=== PATIENT | male | born 1990 | race Caucasian/White ===

== ENCOUNTER 2025-04-18 21:43 | Inpatient (IN) | payer MEDICAID, OTHER ==
[~2025-04-18] VITALS: Ht 177.8 cm; Wt 81.0 kg
[~2025-04-18 21:43] MED LIST: ATOM10CA4 PO; CLON0.1T2 PO; DIVA-153 PO; GABA-1201 PO; MELA5TAB40 PO; QUET100T34 PO; QUET200T30 PO
[2025-04-18 22:53] LABS: COVID AG,FIA SOURCE NASAL SWAB
[2025-04-18 23:10] LABS: SARS-COV2 (COVID) ANTIGEN,FIA Negative (Negative)
[2025-04-18 23:18] LABS: PLATELET COUNT (AUTO) 192 K/uL (150-450); RED BLOOD CELL COUNT(AUTO) 4.96 MIL/uL (4.50-5.90); RED CELL DISTRIBUTION WIDTH 14.9 % (11.5-14.5); WHITE BLOOD COUNT (AUTO) 9.6 K/uL (4.5-11.0)
[2025-04-18 23:44] LABS: CALCIUM, TOTAL 8.9 mg/dL (8.8-10.5); CREATININE 0.81 mg/dL (0.60-1.30); GLOMERULAR FILTR. RATE CALC > 60 mL/min (>60); GLUCOSE,RANDOM 102 mg/dL (70-110); SODIUM SERUM 139 mmol/L (136-145); UREA NITROGEN, BLOOD 13 mg/dL (7-18)
[2025-04-19] MEDS: ZOLPIDEM TARTRATE 10 MG TABLET PO PRN (01:48)
[2025-04-19] MEDS: LORazepam 2 MG/ML VIAL IM ONE (03:58)
[2025-04-19 06:58] LABS: PLATELET COUNT (AUTO) 197 K/uL (150-450); RED BLOOD CELL COUNT(AUTO) 4.97 MIL/uL (4.50-5.90); RED CELL DISTRIBUTION WIDTH 14.8 % (11.5-14.5); WHITE BLOOD COUNT (AUTO) 9.1 K/uL (4.5-11.0)
[2025-04-19 07:13] LABS: ASPARTATE AMINOTRANSFERASE 22 U/L (15-37); CALCIUM, TOTAL 8.7 mg/dL (8.8-10.5); CHOL/HDL RATIO 6.6 (4.2-7.3); CREATININE 0.64 mg/dL (0.60-1.30); GLOMERULAR FILTR. RATE CALC > 60 mL/min (>60); GLUCOSE,RANDOM 98 mg/dL (70-110); SODIUM SERUM 138 mmol/L (136-145); TOTAL PROTEIN, SERUM 7.0 g/dL (6.4-8.2); UREA NITROGEN, BLOOD 13 mg/dL (7-18)
[2025-04-19] MEDS: DIVALPROEX SODIUM 500 MG ER TABLET PO SCH (08:18)
[2025-04-19 08:19] VITALS: O2SAT 99
[2025-04-19] MEDS: GABAPENTIN 400 MG CAPSULE PO SCH (08:19)
[2025-04-19] MEDS: ATOMOXETINE HCL 10 MG CAPSULE PO SCH (12:54)
[2025-04-19 13:07] VITALS: BP 117/75; PULSE 78; RESP 18; TEMP 98.4; O2SAT 98
[2025-04-19] MEDS: BACITRACIN 28 GM OINTMENT TP SCH (17:01)
[2025-04-19] MEDS ORDERED: DOCUSATE SODIUM 100 MG CAPSULE PO PRN (18:15)
[2025-04-19] MEDS ORDERED: ACETAMINOPHEN 325 MG TABLET PO PRN (18:15)
[2025-04-19] MEDS ORDERED: MAGNESIUM HYDROXIDE SUSPENSION 30 ML UDCUP PO PRN (18:15)
[2025-04-19] MEDS ORDERED: BENZOCAINE/MENTHOL [CEPACOL] LOZENGE PO PRN (18:15)
[2025-04-19] MEDS ORDERED: ALBUTEROL SULFATE HFA 90 MCG/PUFF 8 GM INHALER IH PRN (18:15)
[2025-04-19] MEDS ORDERED: MAG HYDROX/ALUMINUM HYD/SIMETH ES 30 ML SUSPENSION UDCUP PO PRN (18:15)
[2025-04-19] MEDS ORDERED: IBUPROFEN 600 MG TABLET PO PRN (18:15)
[2025-04-19] MEDS ORDERED: OMEPRAZOLE 20 MG CAPSULE PO PRN (18:15)
[2025-04-19] MEDS ORDERED: LOPERAMIDE HCL 2 MG CAPSULE PO PRN (18:15)
[2025-04-19] MEDS ORDERED: ONDANSETRON 4 MG TABLET PO PRN (18:15)
[2025-04-19] MEDS ORDERED: PETROLATUM,WHITE 28 GM JELLY TP PRN (18:15)
[2025-04-19 20:13] VITALS: BP 121/81; PULSE 75; RESP 18; TEMP 98; O2SAT 97
[2025-04-19] MEDS: MELATONIN 5 MG TABLET PO SCH (20:55)
[2025-04-20 08:06] VITALS: PULSE 70; RESP 17; TEMP 97.3; O2SAT 97
[2025-04-20] MEDS: ATOMOXETINE HCL 25 MG CAPSULE PO SCH (09:29)
[2025-04-20] MEDS ORDERED: LORazepam 2 MG/ML VIAL ONE (16:32)
[2025-04-20] MEDS: LORazepam 2 MG/ML VIAL IM ONE (17:30)
[2025-04-20 20:26] VITALS: BP 134/82; PULSE 100; RESP 16; TEMP 98.4; O2SAT 97
[2025-04-20] MEDS: DIVALPROEX SODIUM 500 MG DR TABLET PO SCH (20:54)
[2025-04-21 06:14] VITALS: BP 137/77; PULSE 78; RESP 20; TEMP 97.2
[2025-04-21] MEDS: DIVALPROEX SODIUM 500 MG ER TABLET PO SCH (06:18)
[2025-04-21] MEDS: OLANZapine 10 MG RAPDIS TABLET PO SCH (06:19)
[2025-04-21] MEDS: ETHYL ALCOHOL 62% ANTISEPTIC NASAL SANITIZER 0.6 ML AMPUL NASAL SCH (09:47)
[2025-04-21 10:06] VITALS: BP 117/76; PULSE 91; RESP 16; TEMP 98.9; O2SAT 98
[2025-04-21] MEDS: CHLORHEXIDINE GLUCONATE 2% TOWELETTE [2'S/6'S] TP SCH (21:06)
[2025-04-22 03:46] VITALS: RESP 16
[2025-04-22 09:41] VITALS: BP 128/91; PULSE 98; RESP 17; TEMP 97.3; O2SAT 98
[2025-04-22] MEDS: LORazepam 2 MG/ML VIAL IM ONE (13:00)
[2025-04-22] MEDS: GABAPENTIN 100 MG CAPSULE PO SCH (13:12)
[2025-04-22] MEDS: OLANZapine 5 MG RAPDIS TABLET PO SCH (17:34)
[2025-04-22 20:24] VITALS: BP 115/83; PULSE 96; RESP 17; TEMP 100; O2SAT 98
[2025-04-23 09:48] VITALS: BP 126/81; PULSE 93; RESP 17; TEMP 98.3; O2SAT 95
[2025-04-23 20:55] VITALS: BP 147/97; PULSE 98; RESP 18; TEMP 98.3; O2SAT 99
[2025-04-24 09:02] VITALS: BP 130/92; PULSE 93; RESP 17; TEMP 97.7; O2SAT 98
[2025-04-24 20:06] VITALS: BP 124/77; PULSE 84; RESP 16; TEMP 97.5; O2SAT 97
[2025-04-25 08:08] VITALS: RESP 16
[2025-04-25] MEDS: GABAPENTIN 100 MG CAPSULE PO SCH (08:08)
[2025-04-25 08:18] VITALS: BP 117/81; PULSE 80; RESP 16; TEMP 98.1; O2SAT 98
[2025-04-25 09:08] VITALS: RESP 16
[2025-04-25 12:26] VITALS: BP 114/80; RESP 17
[2025-04-25 20:21] VITALS: RESP 18
[2025-04-26 08:05] VITALS: BP 113/80; PULSE 85; RESP 18; TEMP 97.8; O2SAT 98
[2025-04-26 20:12] VITALS: BP 132/88; PULSE 97; RESP 19; TEMP 98.9; O2SAT 97
[2025-04-26] MEDS: INFLUENZA VIRUS VACCINE TVS (6MO+) 2025-26/PF 45 MCG/0.5 ML SYRINGE IM. ONE (23:00)
[2025-04-27 08:22] VITALS: BP 108/73; PULSE 90; RESP 18; TEMP 98.3; O2SAT 100
[2025-04-27 20:17] VITALS: BP 115/80; PULSE 89; RESP 17; TEMP 98; O2SAT 98
[2025-04-28 08:18] VITALS: RESP 17
[2025-04-28] MEDS: BACITRACIN 28 GM OINTMENT TP PRN (09:35)
[2025-04-28 20:28] VITALS: BP 126/84; PULSE 95; RESP 19; TEMP 98.9; O2SAT 95
[2025-04-29 08:09] VITALS: BP 116/77; PULSE 92; RESP 17; TEMP 97.7; O2SAT 98
[2025-04-29 20:03] VITALS: BP 139/82; PULSE 79; RESP 18; TEMP 97.8; O2SAT 98
[2025-04-30 21:03] VITALS: BP 134/100; PULSE 100; RESP 19; TEMP 98.2; O2SAT 98
[2025-05-01 08:12] VITALS: BP 115/73; PULSE 85; RESP 17; TEMP 97.6; O2SAT 99
[2025-05-01] MEDS ORDERED: CHLO50TA53 PO (10:18)
[2025-05-01] MEDS ORDERED: CLON0.1T2 PO (14:16)
[2025-05-01] MEDS ORDERED: DIVA-153 PO (14:16)
[2025-05-01] MEDS ORDERED: ATOM10CA4 PO (14:16)
[2025-05-01] MEDS ORDERED: QUET100T34 PO (14:16)
[2025-05-01] MEDS ORDERED: QUET200T30 PO (14:16)
[2025-05-01] MEDS ORDERED: MELA5TAB40 PO (14:16)
[2025-05-01] MEDS ORDERED: GABA-1201 PO (14:16)
== END 2025-05-01 14:37 | disposition home or self-care (01) | DRG 761 ==
LOC: EMS 21:45 → B3A 04-19 11:37
PROVIDERS: ADMIT Psychiatry & Neurology Psychiatry; ATTEND Psychiatry & Neurology Psychiatry
PROC: GZHZZZZ Group Psychotherapy (ICD-10-PCS; principal; 2025-04-20)
PROC: GZ56ZZZ Individual Psychotherapy, Supportive (ICD-10-PCS; 2025-04-20)
PROC: GZ58ZZZ Individual Psychotherapy, Cognitive-Behavioral (ICD-10-PCS; 2025-04-20)
DX: F25.9 Schizoaffective disorder, unspecified (principal); F70 Mild intellectual disabilities; G47.00 Insomnia, unspecified; I10 Essential (primary) hypertension; K21.9 Gastro-esophageal reflux disease without esophagitis; K59.00 Constipation, unspecified; F84.0 Autistic disorder; Z28.21 Immunization not carried out because of patient refusal; Z20.822 Contact with and (suspected) exposure to COVID-19; Z59.9 Problem related to housing and economic circumstances, unspecified; Z63.9 Problem related to primary support group, unspecified; Z65.3 Problems related to other legal circumstances; Z91.199 Patient's noncompliance with other medical treatment and regimen due to unspecified reason; Z88.8 Allergy status to other drugs, medicaments and biological substances
CPT/HCPCS: 80048; 80053; 80061; 80164; 83036; 84436; 84443; 85025; 87081; 90686; 99285; G0480; J1200; J1630; J2060; J3230